=== PATIENT | male | born 1940 | race Caucasian/White ===

== ENCOUNTER 2017-05-12 13:51 | Emergency (ER) | payer MEDICARE ==
[~2017-05-12] VITALS: Ht 172.7 cm; Wt 84.1 kg
[~2017-05-12 13:51] MED LIST: ASPI81CH3; ATEN1TAB55 PO; ATOR40TA PO; DILTCD240 PO; METF500 PO; PRED20 PO; RAMI10CA35 PO; SERT-132 PO; [UNRECOGNIZED DRUG - CODE] PO
[2017-05-12 14:01] VITALS: BP 129/79; PULSE 102; RESP 20; TEMP 98.3; O2SAT 95
[2017-05-12] MEDS ORDERED: NAPR250T4 PO (14:40)
[2017-05-12] MEDS ORDERED: BACT800T5 PO (14:40)
[2017-05-12] MEDS ORDERED: MUPI2OIN TOPICAL (14:40)
--- NOTE | 2017-05-12 14:48 | PD ---
HPI Chief Complaint: Skin Problem Time Seen by Provider: 14:28 Travel History International Travel<30 days: No Contact w/Intl Traveler<30days: No Traveled to known affect area: No History of Present Illness HPI 77-year-old male that presents to the ED for evaluation of lesions to his arms and legs from palm tree. Per patient he was cutting a palm tree yesterday. Per patient he was not wearing protective gear and he got a lot of lesions from the spines from the palm tree. Per patient he was up all night complaining of some discomfort from especially of the legs. He was able to pull most of the spikes himself. He states that most of the discomfort mainly on the right foot as well as on the hand. He is a diabetic. He denies any other injuries. He states been up-to-date with tetanus. No allergies to medication. Hasn't taken anything for this. He has multiple lesions from the spikes on his feet bilaterally as well as his arms bilaterally. No other medical issues at this time. PFSH Past Medical History Hx Anticoagulant Therapy: Yes Cardiovascular Problems: Yes (AFIB) Diabetes: Yes Social History Tobacco Use: No Allergies-Medications (Allergen,Severity, Reaction): Coded Allergies: No Known Allergies (Unverified Adverse Reaction, Unknown, 05/12/17) Reported Meds & Prescriptions Reported Meds & Active Scripts Active Naproxen 250 Mg Tab 250 Mg PO BID PRN Mupirocin Topical (Mupirocin) 2 % Oint 1 Applic TOPICAL BID Bactrim DS (Sulfamethoxazole-Trimethoprim) 800-160 Mg Tab 1 Tab PO BID 10 Days Deltasone (Prednisone) 20 Mg Tab 20 Mg PO Q12 5 Days Reported D-3-5 (Cholecalciferol) 5,000 Unit Cap 5,000 Unit PO DAILY Aspirin 81 Low Dose (Aspirin) 81 Mg Chw Diltiazem Cd (Diltiazem HCl) 240 Mg Cap 240 Mg PO DAILY Tenormin (Atenolol) 100 Mg Tab 100 Mg PO Sertraline 50 mg (Sertraline HCl) 50 Mg Tab 1 Tab PO DAILY Glucophage 500 mg (Metformin HCl) 500 Mg Tab 500 Mg PO BIDPC Atorvastatin 40 mg (Atorvastatin Calcium) 40 Mg Tab 1 Tab PO DAILY Ramipril 10 mg (Ramipril) 10 Mg Cap 1 Cap PO DAILY Review of Systems Except as stated in HPI: all other systems reviewed are Neg Physical Exam Narrative GENERAL: SKIN: Warm and dry. Patient has multiple puncture-like lesions on the arms and legs. More noticeable on the right foot as well as the right hand. Patient has swelling to the right hand MIP. Erythematous. Erythema noted most of the lesions. Patient does have blister and what appears to be a blister to the right great toe as well as to the arms and legs. Some of this lesions appear to be erythematous and warm to touch. Others appear to be pinkish. No obvious foreign body noted on the right toe or the hand. HEAD: Atraumatic. Normocephalic. EYES: Pupils equal and round. No scleral icterus. No injection or drainage. ENT: No nasal bleeding or discharge. Mucous membranes pink and moist. NECK: Trachea midline. No JVD. CARDIOVASCULAR: Regular rate and rhythm. RESPIRATORY: No accessory muscle use. Clear to auscultation. Breath sounds equal bilaterally. GASTROINTESTINAL: Abdomen soft, non-tender, nondistended. Hepatic and splenic margins not palpable. MUSCULOSKELETAL: Extremities without clubbing, cyanosis, or edema. No obvious deformities. NEUROLOGICAL: Awake and alert. No obvious cranial nerve deficits. Motor grossly within normal limits. Five out of 5 muscle strength in the arms and legs. Normal speech. PSYCHIATRIC: Appropriate mood and affect; insight and judgment normal. Data Data Last Documented VS Vital Signs Date Time Temp Pulse Resp B/P (MAP) Pulse Ox O2 Delivery O2 Flow Rate FiO2 05/12/17 14:01 98.3 102 20 129/79 (96) 95 Orders Orders Ed Discharge Order (05/12/17 14:42) MDM Medical Decision Making Medical Screen Exam Complete: Yes Emergency Medical Condition: Yes Medical Record Reviewed: Yes Differential Diagnosis Cellulitis versus puncture wounds versus palm tree injuries Narrative Course 77-year-old male that presents to the ED for evaluation of puncture wounds to the hands and feet. Patient was properly examined and was found to have signs and symptoms consistent with appears to be infected puncture wounds. No sign of foreign body on examination. He does have multiple punctures to various aspects of the hands and feet. About at least 5 on each extremity. Slightly tender to touch but more noticeable on the right foot as well as the right hand. See does have some erythema and swelling. Definite concern for cellulitis. He is a diabetic. At this time I recommend trial of antibiotic, mupirocin, naproxen for pain. Ice or warm compresses to the areas of pain. Recheck in 48 hours if not better. See ED worsening symptoms. Follow with PCP. Diagnosis Primary Impression: Puncture wound Additional Impression: Cellulitis Qualified Codes: L03.115 - Cellulitis of right lower limb Patient Instructions: General Instructions Additional Instructions: Take medications as prescribed. Follow with PCP. See ED worsening symptoms. Ice or warm compresses as needed. Med/Other Pt SpecificInfo: Prescription(s) given Scripts Naproxen (Naproxen) 250 Mg Tab 250 MG PO BID Y for PAIN SCALE 1 TO 10, #20 TAB 0 Refills Prov: Keturah Law MD 05/12/17 Mupirocin Topical (Mupirocin Topical) 2 % Oint 1 APPLIC TOPICAL BID for Mgmt Bacterial Infection, #1 TUBE 0 Refills Prov: Keturah Law MD 05/12/17 Sulfamethoxazole-Trimethoprim (Bactrim DS) 800-160 Mg Tab 1 TAB PO BID for Infection for 10 Days, #20 TAB 0 Refills Prov: Keturah Law MD 05/12/17 Disposition: 01 DISCHARGE HOME Condition: Stable Dick Muñoz May 12, 2017 14:48
== END 2017-05-12 15:10 | disposition home or self-care (01) ==
LOC: PHEFT 13:51
DX: S91.331A Puncture wound without foreign body, right foot, initial encounter (principal); S91.332A Puncture wound without foreign body, left foot, initial encounter; S61.432A Puncture wound without foreign body of left hand, initial encounter; S61.431A Puncture wound without foreign body of right hand, initial encounter; L03.115 Cellulitis of right lower limb; W60.XXXA Contact with nonvenomous plant thorns and spines and sharp leaves, initial encounter; Y93.H2 Activity, gardening and landscaping; I48.91 Unspecified atrial fibrillation; E11.9 Type 2 diabetes mellitus without complications; Z79.84 Long term (current) use of oral hypoglycemic drugs; Z79.82 Long term (current) use of aspirin
CPT/HCPCS: 99283